=== PATIENT | female | born 2000 | race Caucasian/White ===

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

== ENCOUNTER 2021-03-30 11:47 | Outpatient (CLI) | payer MEDICAID ==
[~2021-03-30] VITALS: Ht 157.5 cm; Wt 85.6 kg
[~2021-03-30 11:47] MED LIST changes: +OMEP40CA6 PO; +SUCR1TAB36 PO
[2021-03-30 12:18] LABS: BILIRUBIN,URINE NEGATIVE (NEGATIVE); CLARITY,URINE CLEAR; COLOR,URINE YELLOW; GLUCOSE, URINE (UA) NEGATIVE (NEGATIVE); KETONES,URINE NEGATIVE (NEGATIVE); LEUKOCYTE ESTERASE ,URINE NEGATIVE (NEGATIVE); NITRITE,URINE NEGATIVE (NEGATIVE); PROTEIN,URINE NEGATIVE (NEGATIVE)
[2021-03-30 12:25] LABS: BACTERIA,URINE NEGATIVE /HPF
[2021-03-30 12:30] VITALS: BP 119/66
[2021-03-31] MEDS ORDERED: PNV11TAB5 PO (18:57)
--- NOTE | 2021-04-01 08:12 | Physician Query-Final Dx ---
FELICITY ALVA 04/01/21 0812: Clinic Account Progress/Dx Physician Query: Please give diagnosis Please include # weeks gestation Date of Service Mar 30, 2021 at 11:47 JOCELIN VIGIL MD 04/03/21 0702: Clinic Account Progress/Dx DIAGNOSIS: Diagnosis 1. Intrauterine at 40 weeks, nonlabored 2. Uterine irritability FELICITY ALVA Apr 01, 2021 08:12 JOCELIN VIGIL MD Apr 03, 2021 07:02
== END 2021-03-30 12:38 | disposition home or self-care (01) ==
LOC: WSo 11:47
PROVIDERS: ATTEND Family Medicine
DX: Z34.90 Encounter for supervision of normal pregnancy, unspecified, unspecified trimester (principal); Z3A.00 Weeks of gestation of pregnancy not specified
CPT/HCPCS: 81000; G0463; 99213

== ENCOUNTER 2021-03-31 18:04 | Inpatient (IN) | payer MEDICAID ==
[~2021-03-31] VITALS: Ht 157.5 cm; Wt 86.2 kg
--- OUTSIDE RECORDS SUMMARY | 2021-03-31 18:08 | XMS REPORT ---
Discharge Summary 2.1 Created on: 02/12/2021 BOBY ROSS : 2000 Sex: Female Author Author BOBY ALDRICH Organization Unknown Address [address] [place], [place] [address] Care Team Providers Care General Matcher Name Role Phone Xwatchlist JOSEE Cuello MD Attending JAVIER OLVERA DO ER Erdoc1 MAJOR SANJAY A TIMBER CRUISER [facility] Functional Status No Data Found Immunization Immunization Date Status Additional Notes Code Code System MMR MMR 04/07/2005 Completed 03 CVX MMR MMR 08/02/2007 Completed 03 CVX Hep B, adolescent or pediatric Hep B, adolescent or pediatric 07/31 Completed 08 CVX Hep B, adolescent or pediatric Hep B, adolescent or pediatric 11/04 Completed 08 CVX Hep B, adolescent or pediatric Hep B, adolescent or pediatric 02/10 Completed 08 CVX IPV IPV 2001 Completed 10 CVX IPV IPV 02/10/2002 Completed 10 CVX IPV IPV 01/14/2005 Completed 10 CVX IPV IPV 08/02/2007 Completed 10 CVX DTaP DTaP 2001 Completed 20 CVX DTaP DTaP 02/10/2002 Completed 20 CVX DTaP DTaP 01/14/2005 Completed 20 CVX DTaP DTaP 02/24/2005 Completed 20 CVX DTaP DTaP 08/20/2009 Completed 20 CVX varicella varicella 04/07/2005 Completed 21 CVX varicella varicella 08/02/2007 Completed 21 CVX Hib (PRP-T) Hib (PRP-T) 2001 Completed 48 CVX Hib (PRP-T) Hib (PRP-T) 02/10/2002 Completed 48 CVX Hib (PRP-T) Hib (PRP-T) 01/14/2005 Completed 48 CVX Hib (PRP-T) Hib (PRP-T) 02/24/2005 Completed 48 CVX HPV, quadrivalent HPV, quadrivalent 03/14/2015 Completed 62 CVX Hep A, ped/adol, 2 dose Hep A, ped/adol, 2 dose 08/20/2009 Completed 83 CVX Hep A, ped/adol, 2 dose Hep A, ped/adol, 2 dose 09/03/2010 Completed 83 CVX pneumococcal conjuga te PCV 7 pneumococcal conjugate PCV 7 02/24/2005 Completed 100 CVX pneumococcal conjuga te PCV 7 pneumococcal conjugate PCV 7 04/07/2005 Completed 100 CVX pneumococcal conjuga te PCV 7 pneumococcal conjugate PCV 7 07/10/2005 Completed 100 CVX pneumococcal conjuga te PCV 7 pneumococcal conjugate PCV 7 08/22/2005 Completed 100 CVX meningococcal MCV4P meningococcal MCV4P 03/14/2015 Completed 114 CVX meningococcal MCV4P meningococcal MCV4P 10/20/2018 Completed 114 CVX Tdap Tdap 01/05/2014 Completed 115 CVX influenza, live, int ranasal, quadrivalent influenza, live, intranasal, quadrivalent 04/02/2013 Completed 149 CVX influenza, injectabl e, quadrivalent influenza, injectable, quadrivalent 04/14/2018 Completed 158 CVX meningococcal B, OMV meningococcal B, OMV 10/20/2018 Completed 163 CVX HPV9 HPV9 04/14/2018 Completed 165 CVX Mental Status No Data Found Results AMNISURE ROM - Collect Date/Time: 2020 06:00 [employer] ID: [id number] [address], [place], [place], [id number] LOINC: 64265-4 Test Value Unit Reference Range Code Code System AMNISURE ROM NEGATIVE NL: NEGATIVE 20636-8 LOINC US RETROPERITONEAL - Completed: 01/05/20 09:43 LOINC: EXAMINATION:US RETROPERITONEALREASON FOR EXAM:Bilateral flank pain left greater than right, 28 weeks COMPARISON:None available.FINDINGS:Moderate right hydronephrosis and mild left hydronephrosis.Questionable nonobstructing left renal calculus versus fortuitous artifact.The right kidney measures 12.4 x 6.9 x 7.5 cm.The left kidney measures 13.3 x 5.9 x 6.4 cm.The bilateral ureteral jets are not visualized. Bladder: No visualized sizable bladder lesion or sizable bladder calculus.IMPRESSION:Right greater than left hydronephrosis.Reviewed and Electronically Signed by: Yoshi Snowden Date/Time: 01/05/2021 1:11 PMJob ID#: [id number] Social History Type Status Start Date End Date Code Code System Smoking History Never smoker (Never Smoked ) 628998893 SNOMED-CT Vital Signs Vital Sign Value Unit [place] Value [place] Unit Date/Time Recent/Initial? Code Cod e System Body Mass Index 26.79 kg/m2 01/04/2021 05:06 Initial 71516-4 LOINC Body Surface Area 1.83 m2 01/04/2021 05:06 Initial 3140-1 LOINC Height 165.1000 cm 65.00 in 01/04/2021 05:06 Initial 8302-2 LOINC Weight 73.03 kg 161.00 lbs 01/04/2021 05:06 Initial 07514-9 LOINC Assessment No Data Found Hospital Discharge Instructions Should you have any questions prior to discharge, please contact a member of your healthcare team. If you have left the hospital and have any questions, please contact your primary care physician. Reason For Referral No Data Found Hospital Course You were admitted to [facility] on 01/04/2021 06:29 with a principal diagnosis of Other specified related conditions, third trimester You were discharged from [facility] on 01/04/2021 15:45 Medications Medication Start Date En d Date Route Frequency Dose Code Code System Medication Instructions Trimethoprim w/ Sulf a DS 800MG-160MG Oral Tablet 01/03/2021 Unknown BY MOUTH EVERY 12 HOURS 1 TABLET 251692 RxNorm 1 TABLET BY MOUTH EVERY 12 HOURS FOR 14 DAYS Percocet 5MG-325MG O ral Tablet 01/03/2021 Unknown BY [facility] NEEDED EVERY 4 HR 1 TABLET 4616080 RxNorm 1 TABLET BY MOUTH NEEDED EVERY 4 HR FOR PAIN LR 1000ML IV [PREDEF INED] 01/04/2021 01/04/2021 IN TRAVENOUS X1 999 ml/hr 375607 RxNorm 999 ml/h r INTRAVENOUS ONE TIME ~~~LR 1000 ML (7953) IV BAG 1000 ML RxNorm LR 1000ML IV [PREDEF INED] 01/04/2021 Unknown INTRA VENOUS CONT IV 125 ml/hr 705997 RxNorm 125 ml/h r INTRAVENOUS ~~~LR 1000 ML (7953) IV BAG 1000 ML RxNorm OXYCODONE 5 MG IMMED IATE RELEASE TAB 01/04/2021 Unknown BY MO UTH PRN Q 4 HRS 1 TAB 094946 1 RxNorm 1 TAB BY MOUTH EVERY 4 HOURS NEE ACETAMINOPHEN [OFIRM EV] 10MG/ML 100ML VL 01/04/2021 Unknown INTRAVENOUS PRN Q 8 HRS 400 ml/hr 8929112 RxNorm 400 ml/hr INTRAVENOUS NEEDED Q 8 HRS ~~~ACETAMINOPHEN [OFIRMEV] 10MG/ML 100ML VL 1000 MG RxNorm ROCEPHIN IV [PREDEF INED]: 1GM IV Q 24HR 01/04/2021 01/11/2021 IV PIGGY Q24H 100 ml/hr [id number] RxNorm 100 ml/h r IV PIGGY ~~~cefTRIAXone [ROCEPHIN] 1 GM ADV VIAL 1 GM RxNorm ~~~NACL 0.9% ADD-VANTAGE: 50 ML BAG 50 ML RxNorm Procedures No Data Found Implants No Data Found Problems No Data Found Allergies Allergy Substance Reaction Severity Start Date Concern Status Code Code System No Known Drug Allergies Active 368500926 SNOMED- CT Plan of Treatment No Data Found Encounters Encounter Diagnosis Start Date Code Code System Other specified preg alice related conditions, third trimester 01/04/2021 SNOMED-CT Goals No Data Found Discharge Medications No Data Found Discharge Diagnosis Discharge Diagnosis Diagnosis Code Start Date Other specified related conditions, third tr imester [id number] 01/04/2021 Health Concerns Section No Data Found
--- OUTSIDE RECORDS SUMMARY | 2021-03-31 18:08 | XMS REPORT ---
Author Author Nadiya Kimbrough [facility] Address [address] [place], [place] [address] Care Team Providers Care Housekeeping/Laundry Name Role Phone Héctor Kimbrough PCP Ramya Liu PreferredProvider Allergies and Adverse Reactions Name Reaction Notes NO KNOWN DRUG ALLERGIES Plan of Treatment Not available. Medications Active Name Start Date Estimated Completion Date SIG Co mments vitamin oral Take one tablet kiki ly Acetaminophen Extra Strength 500 mg tablet 01/15/2021 take 2 tablets (1,000 mg) by oral route every 4-6 hours as needed not to exceed 8 tablets per 24hrs Name Start Date Expiration Date SIG Comments doxepin 100 mg oral capsule 09/02/2019 11/01/2019 take 1 capsule (100 mg) by oral route once daily at bedtime for 30 days Tylenol 325 mg tablet take 1 tab let (325 mg) by oral route every 4 hours as needed Zofran 4 mg tablet 11/23/2020 02/21/2021 take 1 tablet by oral route 2 times a day as needed for 30 days Discontinued Name Start Date [...] oral route once a day at bedtime escitalopram oxalate 10 mg oral tablet 11/23/2020 take 1 tablet (10 mg) by oral route once daily trazodone 100 mg oral tablet 09/05/2019 alta e 2 tablet (100 mg) by oral route once daily at bedtime cyproheptadine 4 mg oral tablet 09/05/2019 Take one tablet by mouth daily at bedtime. Problem List Description Status Onset ADHD Active Vital Signs Date Time BP-Sys(mm[Hg] BP-Chantel(mm[Hg]) HR(bpm) RR(rpm) Temp WT HT HC BMI BSA BMI Percentile O2 Sat(%) 12/27/2020 11:23:00 AM 118 mm[Hg] 68 mm[Hg] 69 {beats}/min 97.9 F 161 lbs 61.5 in 29.9277 kg/m2 1.7801 m2 93.4 % 11/23/2020 1:13:00 PM 116 mm[Hg] 74 mm[Hg] 66 {beats}/min 16 rpm 98.8 F 148 lbs 61.5 in 27.51 kg/m2 1.71 m2 89 % 99 % 09/02/2019 1:24:00 PM 104 mm[Hg] 68 mm[Hg] 95 {beats}/min 20 rpm 98.6 F 188 lbs 61.5 in 34.9467 kg/m2 1.9236 m2 97.7 % 98 % 08/28/2014 9:34:00 AM 100 mm[Hg] 80 mm[Hg] 88 {beats}/min 20 rpm 97 F 117 lbs 61.5 in 21.7487 kg/m2 1.52 m2 80.2 % Social History Name Description Comments Tobacco Current every day smoker Marijuana Current some day 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 History of Procedures Date Ordered Description Order Status 09/05/2019 10:31 AM URINE TEST Reviewed 12/12/2020 12:00 AM COVID-19 Testing Returned 12/27/2020 12:00 AM COLLECTION VENOUS BLOOD VENIPUNCTURE Rev iewed 12/27/2020 12:00 AM SPECIMEN HANDLING OFFICE-LAB Reviewed 12/27/2020 12:00 AM GLUCOSE TOLERANCE TEST (GTT) Reviewed 12/27/2020 12:00 AM COMPLETE CBC W/AUTO DIFF WBC Reviewed 12/27/2020 12:00 AM Type and screen Reviewed 12/27/2020 12:00 AM ASSAY OF FERRITIN Reviewed 12/27/2020 12:00 AM SYPHILIS TEST NON-TREPONEMAL ANTIBODY QU AL Reviewed 12/27/2020 12:00 AM THROMBOPLASTIN TIME PARTIAL Reviewed 12/27/2020 12:00 AM CARDIOLIPIN ANTIBODY EA IG Reviewed 12/27/2020 12:00 AM ASSAY THYROID STIM HORMONE Reviewed 01/15/2021 12:00 AM COVID-19 Testing Returned 02/05/2021 12:00 AM TDAP VACCINE 7 YRS/> IM Reviewed 02/05/2021 12:00 AM IM ADM PRQ ID SUBQ/IM NJXS 1 VACCINE Rev iewed 02/19/2021 12:00 AM CALCULUS ASSAY QUANT Reviewed 03/05/2021 12:00 AM CULTURE SCREEN ONLY Returned Results Summary Date and Description Results 12/28/2020 2:10 PM WBC 11.5 RBC 3.82 HGB 12.0 g /dLHCT 36.20 %MCV 95.0 fLMCH 31.40 pgMCHC 33.10 g/dLRDW SD 45 %RDW CV 12.90 %MPV 9.60 fLPLT 291 x10E3/uLNRBC# 0.00 NRBC% 0.0 %NEUT 68.9 %LYMP 23.4 %MONO 6.4 %EOS 0.4 %BASO 0.3 #NEUT 7.91 #LYMP 2.69 #MONO 0.73 #EOS 0.05 #BASO 0.04 MANUAL DIFF NOT IND FERRITIN 10.0 ng/mLTSH W/REFLEX 0.71 RPR Non Reactive Anticardiolipin Ab,IgG,Qn <9 Anticardiolipin Ab,IgM,Qn 28 12/28/2020 3:05 PM GESTATIONAL GLUCOSE 90 02/19/2021 12:33 PM Source COMMENT Color Johnson Siz e 3x3 Weight 7 Composition COMMENT Hydroxyapatite 100 Photo COMMENT Comment: COMMENT Please note: COMMENT Disclaimer: COMMENT PDF . History Of Immunizations Name Date Admin Mfg Name Mfg Code Trade Name Lot# Route Inj Vis Given Vis Pub CVX Tdap 02/05/2021 [employer] SKB BOOSTRIX 224CG Intramuscular Right Deltoid 02/05/2021 09/28/2019 115 History of Past Illness Name Date of Onset Comments ADHD Depression Bipolar disorder Well Child Examination Aug 28 2014 9:36AM Marijuana abuse Aug 28 2014 9:36AM ADHD (attention deficit hyperactivity disorder) Aug 28 2014 9:36AM Warts Aug 28 2014 9:36AM ADHD Sep 02 2019 1:14PM Depression Sep 02 2019 1:14PM Insomnia Sep 02 2019 1:14PM control counseling Sep 05 2019 10:31AM Physical exam, routine Nov 23 2020 1:13PM Close exposure to severe acute respiratory syndrome co ronavirus 2 (SARS-CoV-2) Dec 12 2020 1:36PM 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, antepartum Dec 27 2020 11:31AM High-risk in second trimester Dec 27 2020 11:31AM 27 weeks gestation of Dec 27 2020 11:31AM First , second trimester Dec 27 2020 12:29PM Encounter for laboratory testing for COVID-19 virus Jan 15 1:25PM Cough Jan 15 2021 1:25PM Congestion of nasal sinus Jan 15 2021 1:25PM Body aches Jan 15 2021 1:25PM Headache Jan 15 2021 1:25PM Loss of taste Jan 15 2021 1:25PM Loss of smell Jan 15 2021 1:25PM Need for Tdap vaccine Feb 05 2021 2:24PM Nephrolithiasis Feb 19 2021 9:43AM screening for streptococcus B Mar 05 2021 9:11AM Payers Insurance Name Company Name Plan Name Plan Number Policy Number Guillermo cy Group Number Start Date [facility] - [facility] - Community [facility] [id number] June History of Encounters Visit Date Visit Type Provider 03/11/2021 Office visit Héctor Walsh 03/05/2021 Office visit Héctor Walsh 02/19/2021 Office visit Héctor Walsh 02/05/2021 Office visit Héctor Walsh 01/22/2021 Office visit Héctor Walsh 01/15/2021 Laboratory Ramya Liu FOOD SERVICE WORKER 12/27/2020 Office visit Héctor Walsh 12/12/2020 Laboratory Zenobia ROCKWELL RN 11/23/2020 Office visit Ramya Liu FOOD SERVICE WORKER 09/02/2019 Office visit Ramya Liu FOOD SERVICE WORKER 08/28/2014 Office visit Grecia ROCKWELL RN
--- OUTSIDE RECORDS SUMMARY | 2021-03-31 18:08 | XMS REPORT ---
Author Author Nadiya Kimbrough [facility] Address [address] [place], [place] [address] Care Team Providers Care Medical Clinic Manager Name Role Phone Héctor Kimbrough PCP Ramya Liu PreferredProvider Allergies and Adverse Reactions Name Reaction Notes NO KNOWN DRUG ALLERGIES Plan of Treatment Planned Activity Comments Planned Date Planned Time Plan/Goal STONE ANALYSIS. 02/19/2021 12:00 AM Medications Active Name Start Date Estimated Completion Date SIG Co mments vitamin oral Take one tablet kiki ly Zofran 4 mg tablet 11/23/2020 02/21/2021 take 1 tablet by oral route 2 times a day as needed for 30 days Acetaminophen Extra Strength 500 mg tablet 01/15/2021 [...] oral route every 4 hours as needed Discontinued Name Start Date Discontinued Date SIG [...] ID SUBQ/IM NJXS 1 VACCINE Rev iewed Results Summary Date and Description Results 12/28/2020 [...] 28 12/28/2020 3:05 PM GESTATIONAL GLUCOSE 90 History Of Immunizations Name Date Admin Mf Name Mf Code Trade Name Lot# Route Inj Vis Given Vis Pub CVX Tdap 02/05/2021 [employer] SKB BOOSTRIX 224CG Intramuscular Right Deltoid 02/05/2021 [...] 2021 2:24PM Nephrolithiasis Feb 19 2021 9:43AM Payers Insurance Name Company Name Plan Name Plan Number Policy Number Guillermo cy Group Number Start Date [facility] - [facility] - [facility] Comm [id number] June History of Encounters Visit Date Visit Type Provider 02/19/2021 Office visit Héctor Walsh 02/05/2021 Office visit Héctor Walsh 01/22/2021 Office visit Héctor Walsh 01/15/2021 Laboratory Ramya Liu FRONT COUNTER ATTENDANT 12/27/2020 Office visit Héctor Walsh 12/12/2020 Laboratory Zenobia ROCKWELL RN 11/23/2020 Office visit Ramya Liu FRONT COUNTER ATTENDANT 09/02/2019 Office visit Ramya Liu FRONT COUNTER ATTENDANT 08/28/2014 Office visit Grecia ROCKWELL RN
--- OUTSIDE RECORDS SUMMARY | 2021-03-31 18:08 | XMS REPORT ---
Author Author Nadiya Kimbrough [facility] Address [address] [place], [place] [address] Care Team Providers Care Channel Layer Name Role Phone Héctor Kimbrough PCP Ramya [...] Vis Given Vis Pub CVX Tdap 02/05/2021 [employer] SKB BOOSTRIX 224CG Intramuscular Right Deltoid 02/05/2021 [...] Number Guillermo cy Group Number Start Date [facility] - [facility] - Community [facility] [id number] June History of Encounters Visit Date Visit Type Provider 03/11/2021 Office visit Héctor Walsh 03/05/2021 Office visit Héctor Walsh 02/19/2021 Office visit Héctor Walsh 02/05/2021 Office visit Héctor Walsh 01/22/2021 Office visit Héctor Walsh 01/15/2021 Laboratory Ramya Liu SENIOR UI UX DESIGNER 12/27/2020 Office visit Héctor Walsh 12/12/2020 Laboratory Zenobia ROCKWELL RN 11/23/2020 Office visit Ramya Liu SENIOR UI UX DESIGNER 09/02/2019 Office visit Ramya Liu SENIOR UI UX DESIGNER 08/28/2014 Office visit Grecia ROCKWELL RN
--- OUTSIDE RECORDS SUMMARY | 2021-03-31 18:08 | XMS REPORT ---
Author Author Nadiya Kimbrough [facility] Address [address] [place], [place] [phone] Care Team Providers Care Competitive Shopper Name Role Phone Héctor Kimbrough PCP Ramya [...] 90 History Of Immunizations Name Date Admin Mfg Name Mfg Code Trade Name Lot# Route Inj Vis Given Vis Pub CVX Tdap 02/05/2021 [employer] SKB BOOSTRIX 224CG Intramuscular Right Deltoid 02/05/2021 [...] for Tdap vaccine Feb 05 2021 2:24PM Payers Insurance Name Company Name Plan Name Plan Number Policy Number Guillermo cy Group Number Start Date [facility] - [facility] - [facility] [id number] June History of Encounters Visit Date Visit Type Provider 02/05/2021 Office visit Héctor Walsh 01/22/2021 Office visit Héctor Walsh 01/15/2021 Laboratory Ramya Liu MURAL ARTIST 12/27/2020 Office visit Héctor Walsh 12/12/2020 Laboratory Zenobia ROCKWELL RN 11/23/2020 Office visit aRmya Liu MURAL ARTIST 09/02/2019 Office visit Ramya Liu MURAL ARTIST 08/28/2014 Office visit Grecia ROCKWELL RN
--- OUTSIDE RECORDS SUMMARY | 2021-03-31 18:08 | XMS REPORT ---
Author Author Nadiya Kimbrough [facility] Address [address] [place], [place] [phone] Care Team Providers Care Tetryl Dissolver Operator Name Role Phone Héctor Kimbrough PCP Major, Ramya A PreferredProvider Allergies and Adverse Reactions Name Reaction Notes NO KNOWN DRUG ALLERGIES Plan of Treatment Planned Activity Comments Planned Date Planned Time Plan/Goal Group B strep culture 03/05/2021 12:00 AM Medications Active Name Start Date [...] iewed 02/19/2021 12:00 AM CALCULUS ASSAY QUANT Returned Results Summary Date and Description Results [...] Vis Given Vis Pub CVX Tdap 02/05/2021 [employer] SKB BOOSTRIX 224CG Intramuscular Right Deltoid 02/05/2021 [...] laboratory testing for COVID-19 virus Jan 15 2 021 1:25PM Cough Jan 15 2021 1:25PM Congestion [...] Guillermo cy Group Number Start Date [facility] - Community [facility] [id number] June History of Encounters Visit Date Visit Type Provider 03/05/2021 Office visit Héctor Walsh 02/19/2021 Office visit Héctor Walsh 02/05/2021 Office visit Héctor Walsh 01/22/2021 Office visit Héctor Walsh 01/15/2021 Laboratory Ramya Liu WINDOWS SYSTEMS ENGINEER 12/27/2020 Office visit Héctor Walsh 12/12/2020 Laboratory Zenobia ROCKWELL RN 11/23/2020 Office visit Ramya Liu WINDOWS SYSTEMS ENGINEER 09/02/2019 Office visit Ramya Liu WINDOWS SYSTEMS ENGINEER 08/28/2014 Office visit Grecia ROCKWELL RN
--- OUTSIDE RECORDS SUMMARY | 2021-03-31 18:08 | XMS REPORT ---
Author Author Nadiya Kimbrough [facility] Address [address] [place], [place] [address] Care Team Providers Care Truss Driver Helper Name Role Phone Héctor Kimbrough PCP Ramya [...] Vis Given Vis Pub CVX Tdap 02/05/2021 [employer] SKB BOOSTRIX 224CG Intramuscular Right Deltoid 02/05/2021 [...] Number Guillermo cy Group Number Start Date [facility] - [facility] - Community [facility] Comm [id number] June History of Encounters Visit Date Visit Type Provider 03/18/2021 Office visit Héctor Walsh 03/11/2021 Office visit Héctor Walsh 03/05/2021 Office visit Héctor Walsh 02/19/2021 Office visit Héctor Walsh 02/05/2021 Office visit Héctor Walsh 01/22/2021 Office visit Héctor Walsh 01/15/2021 Laboratory Ramya Liu STENOGRAPHER PRINT SHOP 12/27/2020 Office visit Héctor Walsh 12/12/2020 Laboratory Zenobia ROCKWELL RN 11/23/2020 Office visit Ramya Liu STENOGRAPHER PRINT SHOP 09/02/2019 Office visit Ramya Liu STENOGRAPHER PRINT SHOP 08/28/2014 Office visit Grecia ROCKWELL RN
--- OUTSIDE RECORDS SUMMARY | 2021-03-31 18:08 | XMS REPORT ---
Author Author Nadiya Kimbrough [facility] Address [address] [place], [place] [address] Care Team Providers Care Pathology Supervisor Name Role Phone Héctor Kimbrough PCP Rmaya Liu PreferredProvider Allergies and Adverse Reactions Name [...] Vis Given Vis Pub CVX Tdap 02/05/2021 [employer] SKB BOOSTRIX 224CG Intramuscular Right Deltoid 02/05/2021 [...] Number Guillermo cy Group Number Start Date [facility] - [facility] [id number] June History of Encounters Visit Date Visit Type Provider 02/19/2021 Office visit Héctor Walsh 02/05/2021 Office visit Héctor Walsh 01/22/2021 Office visit Héctor Walsh 01/15/2021 Laboratory Ramya Liu TOOL FILER 12/27/2020 Office visit Héctor Walsh 12/12/2020 Laboratory Zenobia ROCKWELL RN 11/23/2020 Office visit Ramya Liu TOOL FILER 09/02/2019 Office visit Ramya Liu TOOL FILER 08/28/2014 Office visit Grecia ROCKWELL RN
--- OUTSIDE RECORDS SUMMARY | 2021-03-31 18:08 | XMS REPORT ---
Author Author Nadiya Kimbrough [facility] Address [address] [place], [place] [address] Care Team Providers Care Engraving Plate Maker Name Role Phone Héctro Kimbrough PCP Ramya Liu PreferredProvider Allergies and [...] Vis Given Vis Pub CVX Tdap 02/05/2021 [employer] SKB BOOSTRIX 224CG Intramuscular Right Deltoid 02/05/2021 [...] Number Guillermo cy Group Number Start Date [facility] - [facility] - Community [facility] Comm [id number] June History of Encounters Visit Date Visit Type Provider 03/18/2021 Office visit Héctor Walsh 03/11/2021 Office visit Héctor Walsh 03/05/2021 Office visit Héctor Walsh 02/19/2021 Office visit Héctor Walsh 02/05/2021 Office visit Héctor Walsh 01/22/2021 Office visit Héctor Walsh 01/15/2021 Laboratory Ramya Liu PANTS PRESSER 12/27/2020 Office visit Héctor Walsh 12/12/2020 Laboratory Zenobia ROCKWELL RN 11/23/2020 Office visit Ramya Liu PANTS PRESSER 09/02/2019 Office visit Ramya Liu PANTS PRESSER 08/28/2014 Office visit Grecia ROCKWELL RN
--- OUTSIDE RECORDS SUMMARY | 2021-03-31 18:08 | XMS REPORT ---
Author Author Nadiya Kimbrough [facility] Address [address] [place], [place] [phone] Care Team Providers Care Truck Driving Instructor Name Role Phone Héctor Kimbrough PCP Ramya [...] Reviewed 01/15/2021 12:00 AM COVID-19 Testing Returned Results Summary Date and Description Results [...] PM GESTATIONAL GLUCOSE 90 History Of Immunizations Not available. History of [...] Loss of smell Jan 15 2021 1:25PM Payers Insurance Name Company Name Plan Name Plan Number Policy Number Guillermo cy Group Number Start Date [facility] - [facility] - Community [facility] [id number] June History of Encounters Visit Date Visit Type Provider 02/05/2021 Office visit Héctor Walsh 01/22/2021 Office visit Héctor Walsh 01/15/2021 Laboratory Ramya Liu MOTORCYCLE ASSEMBLER 12/27/2020 Office visit Héctor Walsh 12/12/2020 Laboratory Zenobia ROCKWELL RN 11/23/2020 Office visit Ramya Liu MOTORCYCLE ASSEMBLER 09/02/2019 Office visit Ramya Liu MOTORCYCLE ASSEMBLER 08/28/2014 Office visit Grecia ROCKWELL RN
--- OUTSIDE RECORDS SUMMARY | 2021-03-31 18:08 | XMS REPORT ---
Author Author Nadiya Kimbrough [facility] Address [address] [place], [place] [address] Care Team Providers Care Electrical Technician Instructor Name Role Phone Héctor Kimbrough PCP Major, [...] Vis Given Vis Pub CVX Tdap 02/05/2021 [employer] SKB BOOSTRIX 224CG Intramuscular Right Deltoid 02/05/2021 [...] cy Group Number Start Date [facility] - [facility] - Community [facility] [id number] June History of Encounters Visit Date Visit Type Provider 03/05/2021 Office visit Héctor Walsh 02/19/2021 Office visit Héctor Walsh 02/05/2021 Office visit Héctor Walsh 01/22/2021 Office visit Héctor Walsh 01/15/2021 Laboratory Ramya Liu CRECHE ATTENDANT 12/27/2020 Office visit Héctor Walsh 12/12/2020 Laboratory Zenobia ROCKWELL RN 11/23/2020 Office visit Ramya Liu CRECHE ATTENDANT 09/02/2019 Office visit Ramya Liu CRECHE ATTENDANT 08/28/2014 Office visit Grecia ROCKWELL RN
--- OUTSIDE RECORDS SUMMARY | 2021-03-31 18:08 | XMS REPORT ---
Author Author Nadiya Kimbrough [facility] Address [address] [place], [place] [id number] Care Team Providers Care Mental Health Counselor Name Role Phone Héctor Kimbrough PCP Ramya [...] Vis Given Vis Pub CVX Tdap 02/05/2021 Corelytics SKB BOOSTRIX 224CG Intramuscular Right Deltoid 02/05/2021 [...] Number Guillermo cy Group Number Start Date [facility] - [facility] - Community [facility] Comm [id number] June History of Encounters Visit Date Visit Type Provider 03/18/2021 Office visit Héctor Walsh 03/11/2021 Office visit Héctor Walsh 03/05/2021 Office visit Héctor Walsh 02/19/2021 Office visit Héctor Walsh 02/05/2021 Office visit Héctor Walsh 01/22/2021 Office visit Héctor Walsh 01/15/2021 Laboratory Ramya Liu PARTS PULLER 12/27/2020 Office visit Héctor Walsh 12/12/2020 Laboratory Zenobia ROCKWELL RN 11/23/2020 Office visit Ramya Liu PARTS PULLER 09/02/2019 Office visit Ramya Liu PARTS PULLER 08/28/2014 Office visit Grecia ROCKWELL RN
--- OUTSIDE RECORDS SUMMARY | 2021-03-31 18:08 | XMS REPORT ---
Author Author Nadiya Kimbrough [facility] Address [address] [place], [place] [id number] Care Team Providers Care User Acceptance Tester Name Role Phone Héctor Kimbrough PCP Ramya [...] Vis Given Vis Pub CVX Tdap 02/05/2021 [employer] SKB BOOSTRIX 224CG Intramuscular Right Deltoid [...] Number Guillermo cy Group Number Start Date [facility] - [facility] - [facility] [id number] June History of Encounters Visit Date Visit Type Provider 02/19/2021 Office visit Héctor Walsh 02/05/2021 Office visit Héctor Walsh 01/22/2021 Office visit Héctor Walsh 01/15/2021 Laboratory Ramya Liu TESTING ENGINEER 12/27/2020 Office visit Héctor Walsh 12/12/2020 Laboratory Zenobia ROCKWELL RN 11/23/2020 Office visit Ramya Liu TESTING ENGINEER 09/02/2019 Office visit Ramya Liu TESTING ENGINEER 08/28/2014 Office visit Grecia ROCKWELL RN
--- OUTSIDE RECORDS SUMMARY | 2021-03-31 18:08 | XMS REPORT ---
Author Author Nadiya Kimbrough [facility] Address [address] [place], [place] [phone] Care Team Providers Care Shore Man Name Role Phone Héctor Kimbrough PCP Ramya [...] Vis Given Vis Pub CVX Tdap 02/05/2021 Vusay SKB BOOSTRIX 224CG Intramuscular Right Deltoid 02/05/2021 [...] Number Guillermo cy Group Number Start Date [facility] - [facility] - Community [facility] Comm [id number] June History of Encounters Visit Date Visit Type Provider 03/18/2021 Office visit Héctor Walsh 03/11/2021 Office visit Héctor Walsh 03/05/2021 Office visit Héctor Walsh 02/19/2021 Office visit Héctor Walsh 02/05/2021 Office visit Héctor Walsh 01/22/2021 Office visit Héctor Walsh 01/15/2021 Laboratory Ramya Liu DOCUMENT PREPARER MICROFILMING 12/27/2020 Office visit Héctor Walsh 12/12/2020 Laboratory Zenobia ROCKWELL RN 11/23/2020 Office visit Ramya Liu DOCUMENT PREPARER MICROFILMING 09/02/2019 Office visit Ramya Liu DOCUMENT PREPARER MICROFILMING 08/28/2014 Office visit Grecia ROCKWELL RN
--- OUTSIDE RECORDS SUMMARY | 2021-03-31 18:08 | XMS REPORT ---
Author Author Nadiya Kimbrough [facility] Address [address] [place], [place] [phone] Care Team Providers Care Hospital Director Name Role Phone Héctor Kimbrough PCP Major, [...] ADHD Active Vital Signs Date Time BP-Sys(mm[Hg] BP-Chatnel(mm[Hg]) HR(bpm) RR(rpm) Temp WT HT HC BMI [...] Vis Given Vis Pub CVX Tdap 02/05/2021 MyCadbox SKB BOOSTRIX 224CG Intramuscular Right Deltoid 02/05/2021 [...] Number Guillermo cy Group Number Start Date [facility] - [facility] - Community [facility] [id number] June History of Encounters Visit Date Visit Type Provider 03/05/2021 Office visit Héctor Walsh 02/19/2021 Office visit Héctor Walsh 02/05/2021 Office visit Héctor Walsh 01/22/2021 Office visit Héctor Walsh 01/15/2021 Laboratory Ramya Liu STEEL SAMPLER 12/27/2020 Office visit Héctor Walsh 12/12/2020 Laboratory Zenobia ROCKWELL RN 11/23/2020 Office visit Ramya Liu STEEL SAMPLER 09/02/2019 Office visit Ramya Liu STEEL SAMPLER 08/28/2014 Office visit Grecia ROCKWELL RN
--- OUTSIDE RECORDS SUMMARY | 2021-03-31 18:08 | XMS REPORT ---
Author Author Nadiya Kimbrough [facility] Address [address] [place], [place] [phone] Care Team Providers Care Tree Fruit And Nut Farming Supervisor Name Role Phone Héctor Kimbrough PCP Ramya [...] Number Guillermo cy Group Number Start Date [facility] - Community Plan [facility] [id number] June History of Encounters Visit Date Visit Type Provider 02/05/2021 Office visit Héctor Walsh 01/22/2021 Office visit Héctor Walsh 01/15/2021 Laboratory Ramya Liu WEB DEVELOPMENT DIRECTOR 12/27/2020 Office visit Héctor Walsh 12/12/2020 Laboratory Zenobia ROCKWELL RN 11/23/2020 Office visit Ramya Liu WEB DEVELOPMENT DIRECTOR 09/02/2019 Office visit Ramya Liu WEB DEVELOPMENT DIRECTOR 08/28/2014 Office visit Grecia ROCKWELL RN
--- OUTSIDE RECORDS SUMMARY | 2021-03-31 18:08 | XMS REPORT | Clinical Summary ---
Author Author [facility] Address Unknown Phone Unavailable Care Team Providers Care Tile Erector Name Role Phone Unassigned, None PCP Unavailable Martinez Lucero MD [phone] Allergies Comments Active Allergy Reactions Severity Noted Date Beta Vulgaris Anaphylaxis High 10/13/2018 Latex Anaphylaxis High 10/13/2018 Medications End Date Status Medication Sig Dispensed Refills Start Date Active Melatonin 5 MG CAPS Take 5 mg by 0 mouth at bedtime as needed. Active asenapine (SAPHRIS) 2.5 Place 1 30 tablet 0 / MG SL tabletIndications: tablet (2.5 8 Mood disorder/insomnia mg total) under the tongue at bedtime. Indications: Mood disorder/inso mnia Active methylphenidate Take 1 tablet 30 tablet 0 01/17/20 1 (CONCERTA) 36 MG CR (36 mg total) 8 tabletIndications: ADHD by mouth (attention deficit daily. Do not hyperactivity disorder), exceed a combined type daily dose of 36 mg Active guanFACINE (INTUNIV) 2 MG Take 2 mg by 0 11/28 24 hr tablet mouth daily. 9 Active Promethazine-Codeine TAKE 5 ML 0 6.25-10 MG/5ML SOLN (CC) BY MOUTH 9 EVERY 4 HOURS NEEDED FOR COUGH Active traZODone (DESYREL) 50 MG Take 100 mg 0 11/28 tablet by mouth. 9 Active cloNIDine (CATAPRES) 0.1 0 MG tablet 9 Active cyproheptadine 0 (PERIACTIN) 4 MG tablet 9 Active BANOPHEN 25 MG tablet 0 9 Active VYVANSE 30 MG capsule Take 30 mg by 0 05/13/20 1 mouth every 9 morning before breakfast. 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 Conduct disorder 01/13/2018 Resolved Problems Problem Noted Date Resolved Date Suicidal ideation 01/13/2018 01/15/2018 Immunizations Name Administration Dates Next Due DTaP 08/20/2009, 02/24/2005, , 02/10/2002, 2001 HPV, quadrivalent 03/14/2015 (Gardasil) HPV-9, Valent (Gardasil) 04/14/2018, 11/06/2016 Hep B,adolescent or 02/10/2002, 2001, 07/2001 pediatric Hepatitis A, Ped/adol, 2 09/03/2010, 08/20/2009 dose HiB (PRP-T) 02/24/2005, 01/14/2005, , 2001 IPV 08/02/2007, 01/14/2005, , 2001 Influenza IIV4 MDV 04/14/2018 (Multi-dose vial) Influenza LAIV4 Nasal 04/02/2013 MMR 08/02/2007, 04/07/2005 Meningococcal 10/20/2018 B-Recombinant (Bexsero) Meningococcal 10/20/2018, 03/14/2015 Polysaccharide valent-4 Diphtheria Toxoid Conjucate (Menactra) Pneumococcal Conjugate 08/22/2005, 07/10/2005, 03/2005, 02/24/2005 (7-valent) -WebIZ Registry Tdap 01/05/2014 Varicella (Varivax) 08/02/2007, 04/07/2005 Social History Date Tobacco Use Types Packs/Day Years Used Former Smoker 0 Smokeless Tobacco: Never Used Comments Alcohol Use Standard Drinks/Week Never 0 (1 standard drink = 0.6 o z pure alcohol) Alcohol Habits Answer Date Recorded How often do you have a drink containing alcohol? Never 03/23/2019 How many drinks containing alcohol do you have on No t asked a typical day when you are drinking? How often do you have six or more drinks on one Not asked occasion? Control Partners Comments Sexually Active None Male Yes Sex Assigned at Date Recorded Not on file Last Filed Vital Signs Reading Time Taken Comments Vital Sign 114/83 05/25/2019 4:18 PM ECONOMIC HISTORY TEACHER Blood Pressure 113 05/25/2019 4:18 PM ECONOMIC HISTORY TEACHER Pulse 37.1 C (98.7 F) 05/25/2019 4:18 PM ECONOMIC HISTORY TEACHER Temperature 18 05/25/2019 4:18 PM ECONOMIC HISTORY TEACHER Respiratory Rate 100% 05/25/2019 4:18 PM ECONOMIC HISTORY TEACHER Oxygen Saturation - - Inhaled Oxygen Concentration 86 kg (189 lb 8 oz) 05/25/2019 4:18 PM ECONOMIC HISTORY TEACHER Weight 158.8 cm (5' 2.5") 05/25/2019 4:18 PM ECONOMIC HISTORY TEACHER Height 34.11 05/25/2019 4:18 PM ECONOMIC HISTORY TEACHER Body Mass Index 97.55 % 05/25/2019 4:18 PM ECONOMIC HISTORY TEACHER Body Mass Index Percentile Growth Chart: [facility] (Girls, 2-20 Years) Plan of Treatment Health Maintenance Due Date Last Done Comments COVID-19 Vaccine (1) 2013 MenB Vaccine (Bexsero) (2 11/17/2018 10/20/2018 of 2) Hepatitis C Screening 2019 Influenza Vaccine (#1) 2021 04/14/2018, 04/02/2013 DTaP,Tdap,and Td Vaccines 01/06/2024 01/05/2014, (6 - Td or Tdap) 08/20/2009, 02/24/2005, Additional history exists Pneumo-Vaccine: 65+Yrs (1 2066 of 1 - PPSV23) HIB Vaccines Completed 02/24/2005, 01/14/2005, 02/10/2002, Additional history exists Pneumo-Vaccine: Peds (0-5 Completed 08/22/2005, Yrs) & At-Risk Patients 07/10/2005, (6-64 Yrs) 04/07/2005, Additional history exists IPV Vaccines Completed 08/02/2007, 01/14/2005, 02/10/2002, Additional history exists MMR Vaccines-Adult Completed 08/02/2007, 04/07/2005 Varicella Vaccines Completed 08/02/2007, 04/07/2005 HPV Vaccines Completed 04/14/2018, 11/06/2016, 03/14/2015 Meningococcal Vaccine Completed 10/20/2018, 03/14/2015 Rotavirus Vaccines Aged Out No longer eligible based on patient's age to complete this topic Results Not on filefrom Last 3 Months Insurance Type Payer Benefit Subscriber ID Effective Phone Address Plan / Dates Group [employer] [facility] [employer] 19 [id number] 2018- [address] Present [address] [place] [address] [employer] [facility] 19 [id number] 2019- [address] [facility] [address] [place] [address] Advance Directives For more information, please contact: [phone] Patient Veneer Stapler Explanation Type Date Recorded Advance Directives and Living Will Power of Cutting Torch Operator Date Inactivated Comments Code Status Date Activated 01/15/2018 6:05 PM Full Code 01/13/2018 4:42 AM Care Teams Start Date End Date Tile Erector Relationship Specialty 03/23/19 Unassigned, None PCP - General [place] 05/12/19 Martinez Lucero MD Ultrasound Coordinator Obstetrics/ [address] [place] [address]
--- OUTSIDE RECORDS SUMMARY | 2021-03-31 18:09 | XMS REPORT ---
Author Author Nadiya Kimbrough [facility] Address [address] [place], [place] [phone] Care Team Providers Care Exchange Consultant Name Role Phone Héctor Kimbrough PCP Ramya [...] Number Guillermo cy Group Number Start Date [facility] - [facility] - Community Plan [facility] [id number] June History of Encounters Visit Date Visit Type Provider 02/05/2021 Office visit Héctor Walsh 01/22/2021 Office visit Héctor Walsh 01/15/2021 Laboratory Ramya Liu INFORMATION TECHNOLOGY PROFESSOR 12/27/2020 Office visit Héctor Walsh 12/12/2020 Laboratory Zenobia ROCKWELL RN 11/23/2020 Office visit Ramya Liu INFORMATION TECHNOLOGY PROFESSOR 09/02/2019 Office visit Ramya Lui INFORMATION TECHNOLOGY PROFESSOR 08/28/2014 Office visit Grecia ROCKWELL RN
[2021-03-31] MEDS ORDERED: MINERAL OIL CONCENTRATE 99.9% 15 ML UDC TOP PRN (18:15)
[2021-03-31 18:30] VITALS: BP 117/73
[2021-03-31] MEDS: D5 LR IV SOLUTION 1,000 ML IV SCH (18:47)
[2021-03-31 18:54] LABS: BASOPHILS % (AUTO) 0 % (0-10); EOSINOPHILS # (AUTO) 0.1 10^3/uL (0.0-0.3); EOSINOPHILS % (AUTO) 1 % (0-10); HEMATOCRIT 35 % (35-52); HEMOGLOBIN 11.7 g/dL (11.5-16.0); LYMPHOCYTES # (AUTO) 2.6 10^3/uL (1.0-4.0); LYMPHOCYTES % (AUTO) 20 % (12-44); MEAN CORPUSCULAR HEMOGLOBIN 31 pg (25-34); MEAN CORPUSCULAR HGB CONC 34 g/dL (32-36); MEAN CORPUSCULAR VOLUME 93 fL (80-99); MEAN PLATELET VOLUME 10.7 fL (9.0-12.2); MONOCYTES # (AUTO) 0.8 10^3/uL (0.0-1.0); MONOCYTES % (AUTO) 6 % (0-12); NEUTROPHILS # (AUTO) 9.2 10^3/uL (1.8-7.8); NEUTROPHILS % (AUTO) 72 % (42-75); PLATELET COUNT 271 10^3/uL (130-400); WHITE BLOOD COUNT 12.7 10^3/uL (4.3-11.0)
[2021-03-31] MEDS ORDERED: PNV11TAB5 PO (18:57)
[2021-03-31 19:03] LABS: BILIRUBIN,URINE NEGATIVE (NEGATIVE); CLARITY,URINE SL CLOUDY; COLOR,URINE YELLOW; GLUCOSE, URINE (UA) NEGATIVE (NEGATIVE); KETONES,URINE NEGATIVE (NEGATIVE); LEUKOCYTE ESTERASE ,URINE NEGATIVE (NEGATIVE); NITRITE,URINE NEGATIVE (NEGATIVE); PROTEIN,URINE NEGATIVE (NEGATIVE)
[2021-03-31 19:11] LABS: AMORPHOUS SEDIMENT,UR LARGE AMOR PHOSPHATE /LPF; BACTERIA,URINE TRACE /HPF; WBC,URINE RARE /HPF
[2021-03-31] MEDS ORDERED: LACTATED RINGERS 1,000 ML IV SCH (20:00)
[2021-03-31 21:00] VITALS: BP 120/66
[2021-03-31] MEDS ORDERED: CATHETER FLUSH 10 ML SYR IV SCH (22:00)
[2021-03-31 23:00] VITALS: BP 113/67
[2021-04-01] VITALS (37 sets, daily range): BP systolic 88–151; BP diastolic 46–106
[2021-04-01] MEDS: D5 LR IV SOLUTION 1,000 ML IV SCH ×2 (03:45→08:35)
[2021-04-01] MEDS ORDERED: BUTORPHANOL INJ 2 MG/ML (STADOL) VIAL ONE (04:43)
[2021-04-01] MEDS ORDERED: BUTORPHANOL INJ 2 MG/ML (STADOL) VIAL IV PRN (04:45)
[2021-04-01] MEDS ORDERED: LACTATED RINGERS 1,000 ML IV SCH (06:45)
[2021-04-01] MEDS ORDERED: fentaNYL 2 mcg/ml BUPIVA 0.125 100 ML ONE (06:48)
[2021-04-01] MEDS ORDERED: fentaNYL INJ 100 MCG/2 ML AMP ONE (07:09)
[2021-04-01] MEDS ORDERED: BUPIVACAINE 0.25% 30 ML (SENSORCAINE) VIAL ONE (07:09)
[2021-04-01] MEDS ORDERED: CATHETER FLUSH 10 ML SYR IV PRN (07:15)
[2021-04-01] MEDS ORDERED: fentaNYL 2 mcg/ml BUPIVA 0.125 100 ML IV SCH (07:15)
[2021-04-01] MEDS ORDERED: LACTATED RINGERS 1,000 ML IV ONE (07:15)
[2021-04-01] MEDS ORDERED: NALOXONE 0.4 MG/ML 1 ML (NARCAN) VIAL IV PRN ×2 (07:15→10:45)
--- NOTE | 2021-04-01 07:52 | History & Physical-OB ---
OB - Chief Complaint & HPI Date/Time Date of Admission: Date of Admission: Mar 31, 2021 at 18:04 Date seen by a Provider: Apr 01, 2021 Time Seen by a Provider: 06:25 Chief Complaint/History OB-Reason for Admission/Chief: Induction of Labor Hx : 4 Hx Para: 0 Expected Date of Delivery: Mar 27, 2021 Gestational Age in Weeks: 40 Gestational Age in Days: 4 Indication for induction: post dates Admission Nurse Assessment Rev: Yes History of Labs GBS negative Allergies and Home Medications Allergies Coded Allergies: No Known Drug Allergies (Unverified , 02/03/19) Patient Home Medication List Home Medication List Reviewed: Yes Syd860/FA/Omega3/Dha/Fish Oil ( Gummies) 1 Each Tab.chew, 2 EACH PO DAILY, (Reported) Entered as Reported by: LUZ NOGUERA on 03/31/211856 Last Action: New Order Discontinued Medications Nitrofurantoin Monohyd/M-Cryst (Macrobid 100 mg Capsule) 100 Mg Capsule, 1 TAB PO BID Discontinued Reason: No Longer Taking Prescribed by: NAOMI PAINTER on 02/03/192213 Omeprazole (Omeprazole) 40 Mg Capsule.dr, 40 MG PO DAILY Discontinued Reason: No Longer Taking Prescribed by: MARSHA DIMAS on 12/18/19 170 Sucralfate (Carafate) 1 Gm Tablet, 1 GM PO QIDACHS Discontinued Reason: No Longer Taking Prescribed by: MARSHA DIMAS on 12/18/19 170 OB - History Hx of Present Care: Yes Ultrasounds: Normal mid trimester US Obstetrical Complications: None Medical Complications: Cardiovascular Patient Past Medical History no chronic medical problems Social History/Family History 2nd Hand Smoke Exposure: Yes Immunizations Tetanus Booster (TDap): Unknown OB - Admission Exam Physical Exam Vitals: Vital Signs 03/31/21 04/01/21 04/01/21 18:30 03:00 07:00 Temp 36.6 Pulse 76 Resp 18 B/P (MAP) 133/81 (98) Pulse Ox 97 O2 Delivery Room Air HEENT: Moist Membranes Heart: Rhythm Normal Lungs: Clear Abdomen: Gravid Cervical Dilatation: 1cm (on admission) Effacement: 75% Station: -3 Membranes: Intact Heart Rate: 140's Accelerations: Accelerations Present Decelerations: No Decelerations Short Term Variability: Present Prison Variability: Average (6-25) Contractions on Admission: >10 Minutes Apart Intensity: Mild Davey Scoring Tool (Modified) Dilation (cm): 1-2cm (1) Effacement (%): 51-79% (2) Descent/Station: -3 (0) Cervix Consistency: Medium(1) Cervix Position: Middle/Mid-Position (1) Davey Score: 4 Labs Laboratory Tests Test 03/31/21 18:15 03/31/21 18:30 Range/Units Urine Color YELLOW Urine Clarity SL CLOUDY Urine pH 7.0 5-9 Urine Specific [place] 1.020 1.016-1.022 Urine Protein NEGATIVE NEGATIVE Urine Glucose (UA) NEGATIVE NEGATIVE Urine Ketones NEGATIVE NEGATIVE Urine Nitrite NEGATIVE NEGATIVE Urine Bilirubin NEGATIVE NEGATIVE Urine Urobilinogen 0.2 < = 1.0 MG/DL Urine Leukocyte Esterase NEGATIVE NEGATIVE Urine RBC (Auto) NEGATIVE NEGATIVE Urine RBC NONE /HPF Urine WBC RARE /HPF Urine Crystals PRESENT H /LPF Urine Amorphous Sediment LARGE REJI PHOSPHATE H /LPF Urine Bacteria TRACE /HPF Urine Casts NONE /LPF Urine Mucus NEGATIVE /LPF Urine Culture Indicated NO White Blood Count 12.7 H 4.3-11.0 10^3/uL Red Blood Count 3.77 L 3.80-5.11 10^6/uL Hemoglobin 11.7 11.5-16.0 g/dL Hematocrit 35 35-52 % Mean Corpuscular Volume 93 80-99 fL Mean Corpuscular Hemoglobin 31 25-34 pg Mean Corpuscular Hemoglobin Concent 34 32-36 g/dL Red Cell Distribution Width 13.7 10.0-14.5 % Platelet Count 271 130-400 10^3/uL Mean Platelet Volume 10.7 9.0-12.2 fL Immature Granulocyte % (Auto) 0 % Neutrophils (%) (Auto) 72 42-75 % Lymphocytes (%) (Auto) 20 12-44 % Monocytes (%) (Auto) 6 0-12 % Eosinophils (%) (Auto) 1 0-10 % Basophils (%) (Auto) 0 0-10 % Neutrophils # (Auto) 9.2 H 1.8-7.8 10^3/uL Lymphocytes # (Auto) 2.6 1.0-4.0 10^3/uL Monocytes # (Auto) 0.8 0.0-1.0 10^3/uL Eosinophils # (Auto) 0.1 0.0-0.3 10^3/uL Basophils # (Auto) 0.0 0.0-0.1 10^3/uL Immature Granulocyte # (Auto) 0.1 0.0-0.1 10^3/uL OB - Assessment/Plan/Diagnosis Assessment Assessment: induction of labor (at 40w4d gestation) Admission Dx 1. IUP at 40w4d gestation Admission Status: Inpatient Order (span 2 midnights) Reason for Inpatient Admission: L&D Plan Plan: Induction Induction Method: per Misoprostol Protocol Other Plan -she desires epidural JOCELIN VIGIL MD Apr 01, 2021 07:52
[2021-04-01] MEDS ORDERED: ONDANSETRON 4 MG/2 ML (SDV) Z0FRAN ONE (08:37)
[2021-04-01] MEDS ORDERED: ONDANSETRON 4 MG/2 ML (SDV) Z0FRAN IVP PRN (08:45)
[2021-04-01] MEDS ORDERED: LIDOCAINE/EPI 2% 1:200,00 (XYLOCAINE) 20 ML VIAL ONE (08:55)
[2021-04-01] MEDS ORDERED: MEPIVACAINE (CARBOCAINE) 2% 50 ML VIAL ONE (08:58)
[2021-04-01] MEDS: OXYTOCIN PRE-MIX DRIP 500 ML IV SCH ×2 (09:18→10:02)
--- NOTE | 2021-04-01 10:43 | OB Labor & Delivery Record ---
L&D History Date of Service Date of Service: Apr 01, 2021 History Expected Date of Delivery: Mar 27, 2021 Gestational Age in Weeks: 40 Hx : 4 Hx Para: 1 Complications Events: Routine care Operative Indications (Cesarea: N/A-Vaginal Delivery Intrapartal Events: None L&D Stage1 Stage One Onset of Labor - Date: Apr 01, 2021 Onset of Labor - Time: 06:25 Monitors and Tracing Monitor Mode: Internal Heart Rate: 120 Monitor Accelerations: Uniform Station: 0 Senior Living Variability: Average (6-10) Short Term Variability: Present Presentation: Vertex Vital Signs VS - Last 72 Hours, by Label 03/31/21 03/31/21 03/31/21 04/01/21 18:30 21:00 23:00 00:00 Temp 36.6 36.8 Pulse 88 76 79 74 Resp 18 B/P (MAP) 120/66 (84) 113/67 (82) 88/46 (60) Pulse Ox 97 O2 Delivery Room Air Room Air Room Air Room Air 04/01/21 04/01/21 04/01/21 04/01/21 01:00 02:00 03:00 04:00 Temp 36.6 Pulse 78 81 82 85 B/P (MAP) 111/62 (78) 113/63 (80) 110/71 (84) 126/71 (89) O2 Delivery Room Air Room Air Room Air Room Air 04/01/21 04/01/21 04/01/21 05:00 06:00 07:00 Pulse 77 77 76 B/P (MAP) 118/67 (84) 125/89 (101) 133/81 (98) O2 Delivery Room Air Room Air Room Air Signs of Distress by FHT Signs of Distress no Rupture of Membranes Spontaneous Ruture of Membrane: No Amniotic Membrane Rupture Time: 0625 Amniotic Membrane Fluid Desc.: Clear Induction/Anesthesia Medications epidural L&D Stage2 Stage Two Stage II Date: Apr 01, 2021 Stage II Time: 09:14 Monitors and Tracing Monitor Mode: Internal Heart Rate: 120 Monitor Accelerations: Uniform Monitor Decelerations: None Jointer Machine Operator Variability: Average (6-10) Short Term Variability: Present Position: Left Occiput Anterior Presentation: Vertex Signs of Distress by FHT Signs of Distress no Cord Descript/Complications Cord Vessel Description: 3 Vessels Delivery Type Delivery Method: Spontaneous Vaginal Episiotomy/Perineal Laceration Laceraction(s)/Extensions: No Condition of Delivery 1 minute Comment: 9 5 minute Comment: 9 Condition of Infant Condition of Infant: Living Exam: No Observed Abnormalities Resuscitation Resuscitation: N/A - Spontaneous Resp L&D Stage3 Stage Three Stage III Date: Apr 01, 2021 Stage III Time: 09:18 Pictocin Pitocin ml/hr: 125 Placenta Delivery Placenta Delivery: Spontaneous Delivery Summary Summary Estimated blood loss (mL): 100 Condition of Delivery Examined: Cervix Examined Post Hemorrhage: No Intervention Required no JOCELIN VIGIL MD Apr 01, 2021 10:42
[2021-04-01] MEDS ORDERED: OXYTOCIN PRE-MIX DRIP 500 ML IV SCH (10:45)
[2021-04-01] MEDS ORDERED: MEASLES,MUMPS,RUBELLA 1 EA INJ SQ ONE (10:45)
[2021-04-01] MEDS ORDERED: TETANUS,DIPTH,PERTUSS P/F (BOOSTRIX) 0.5 ML VIAL IM ONE (10:45)
[2021-04-01] MEDS ORDERED: BENZOCAINE/MENTHOL (DERMOPLAST) 56 ML CAN TP PRN (10:45)
[2021-04-01] MEDS ORDERED: MEPIVACAINE (CARBOCAINE) 2% 50 ML VIAL IJ ONE (11:00)
[2021-04-01] MEDS ORDERED: ACETAMINOPHEN 500 MG TAB (TYLENOL) PO SCH (12:00)
[2021-04-01] MEDS: IBUPROFEN 600 MG (MOTRIN) TAB PO SCH ×2 (12:01→19:23)
[2021-04-01] MEDS: WITCH HAZEL(TUCKS) 40 EA JAR TOP PRN (12:02)
[2021-04-01 12:51] LABS: AMPHETAMINE SCREEN, URINE NEGATIVE (NEGATIVE); BARBITURATE SCREEN URINE NEGATIVE (NEGATIVE); BENZODIAZEPINES SCREEN URINE NEGATIVE (NEGATIVE); CANNABINOID SCREEN, URINE POSITIVE (NEGATIVE); COCAINE SCREEN URINE NEGATIVE (NEGATIVE); METHADONE STAT NEGATIVE (NEGATIVE); METHAMPHETAMINE SCREEN URINE S NEGATIVE (NEGATIVE); OPIATE SCREEN URINE NEGATIVE (NEGATIVE); OXYCODONE STAT NEGATIVE (NEGATIVE); PROPOXYPHENE STAT NEGATIVE (NEGATIVE); TRICYCLIC ANTIDEPRESSANTS SCRE NEGATIVE (NEGATIVE)
[2021-04-01] MEDS ORDERED: CATHETER FLUSH 10 ML SYR IV SCH (14:00)
[2021-04-01] MEDS ORDERED: ACETAMINOPHEN 500 MG TAB (TYLENOL) PO PRN (14:30)
[2021-04-01] MEDS: DOCUSATE SODIUM 100 MG (COLACE) CAP PO SCH (19:23)
[2021-04-02] MEDS: IBUPROFEN 600 MG (MOTRIN) TAB PO SCH ×2 (00:50→06:02)
[2021-04-02 03:08] VITALS: BP 111/55
[2021-04-02 05:47] LABS: BASOPHILS % (AUTO) 0 % (0-10); EOSINOPHILS # (AUTO) 0.1 10^3/uL (0.0-0.3); EOSINOPHILS % (AUTO) 1 % (0-10); HEMATOCRIT 30 % (35-52); LYMPHOCYTES # (AUTO) 3.1 10^3/uL (1.0-4.0); LYMPHOCYTES % (AUTO) 24 % (12-44); MEAN CORPUSCULAR HEMOGLOBIN 31 pg (25-34); MEAN CORPUSCULAR HGB CONC 34 g/dL (32-36); MEAN CORPUSCULAR VOLUME 93 fL (80-99); MEAN PLATELET VOLUME 10.5 fL (9.0-12.2); MONOCYTES # (AUTO) 0.9 10^3/uL (0.0-1.0); MONOCYTES % (AUTO) 7 % (0-12); NEUTROPHILS # (AUTO) 8.8 10^3/uL (1.8-7.8); NEUTROPHILS % (AUTO) 68 % (42-75); PLATELET COUNT 211 10^3/uL (130-400)
[2021-04-02] MEDS: WITCH HAZEL(TUCKS) 40 EA JAR TOP PRN ×2 (06:03→11:08)
[2021-04-02 07:31] VITALS: BP 121/71
[2021-04-02] MEDS: DOCUSATE SODIUM 100 MG (COLACE) CAP PO SCH (07:31)
--- NOTE | 2021-04-02 08:17 | Discharge Summary ---
Diagnosis/Chief Complaint Date of Admission Mar 31, 2021 at 18:04 Date of Discharge April 02, 2021 Admission Diagnosis Admission Diagnosis 1. Intrauterine at 40 weeks 4 days gestation Discharge Diagnosis 1. Intrauterine at 40 weeks 4 days gestation Chief Complaint/HPI Chief Complaint/HPI 20-year-old 4 now L1 who initially presented for induction of labor at 40 weeks 4 days gestation. Her care was obtained through [facility], [facility] and [facility] as well as extruder operator multiple in [facility]. She was noted to be negative for group B strep status. Discharge Summary-OBS Procedures 1. Epidural per anesthesia 2. Spontaneous vaginal delivery Discharge Physical Examination Allergies: Coded Allergies: No Known Drug Allergies (Unverified , 02/03/19) Vitals & I&Os Vital Sign - Last 12Hours Date Time Temp Pulse Resp B/P (MAP) Pulse Ox O2 Delivery O2 Flow Rate FiO2 04/02/21 07:31 36.7 78 16 121/71 (88) 98 04/02/21 03:08 Room Air General Appearance: Alert Respiratory: Clear to Auscultation Cardiovascular: Regular Rate Abdominal: Soft (with uterus firm) Hospital Course Was the Problem List Reviewed?: Yes patient was admitted during the evening of March 31, 2021. She underwent Cytotec induction and received 2 doses following admission. She ultimately developed a contraction pattern. She dilated to 3 cm by the morning of March for an amniotomy was performed with clear fluid noted. She quickly went on to completion and delivered over an intact perineum a term viable male. See labor and delivery note for full details. following delivery patient underwent routine care orders. She had no complications during the remainder of stay. Her hemoglobin in the morning of April 02 was noted to be 10.0 compared to admission of 11.7. She did not develop any chest pain or shortness of breath. There was no leg pain. She tolerated regular diet. She was eager for dismissal during the early afternoon of April 02, 2021. Labs Laboratory Tests 04/01/21 11:45: 04/02/21 05:27: White Blood Count 13.0H, Red Blood Count 3.21L, Hemoglobin 10.0L, Hematocrit 30L , Mean Corpuscular Volume 93, Mean Corpuscular Hemoglobin 31, Mean Corpuscular Hemoglobin Concent 34, Red Cell Distribution Width 13.5, Platelet Count 211, Mean Platelet Volume 10.5, Immature Granulocyte % (Auto) 1, Neutrophils (%) (Auto) 68, Lymphocytes (%) (Auto) 24, Monocytes (%) (Auto) 7, Eosinophils (%) (Auto) 1, Basophils (%) (Auto) 0, Neutrophils # (Auto) 8.8H, Lymphocytes # (Auto) 3.1, Monocytes # (Auto) 0.9, Eosinophils # (Auto) 0.1, Basophils # (Auto) 0.0, Immature Granulocyte # (Auto) 0.1 Discharge Instructions to patient/family Please see electronic discharge instructions given to patient. Discharge Medications Reviewed and agree with Discharge Medication list on patient's Discharge Instruction sheet JOCELIN VIGIL MD Apr 02, 2021 08:17
[2021-04-02] MEDS ORDERED: IBUP-844 PO (08:18)
--- NOTE | 2021-04-02 08:19 | Discharge Inst-Women's Service ---
Discharge Inst-Women's Serv Depart Medication/Instructions New, Converted or Re-Newed RX: Transmitted to Pharmacy ([facility]) Problems Reviewed?: Yes Consults/Follow Up Additional Follow Up: Yes (Dr Vigil at [facility] in 6 weeks) Diet Discharge Diet: Regular Diet Return to The Hospital For: as below Symptoms to Report to : Bleeding Excessive, Fever Over 101 Degrees F, Vaginal Discharge Foul For Any Problems or Questions: Contact Your Physician JOCELIN VIGIL MD Apr 02, 2021 08:19
[2021-04-02] MEDS ORDERED: MEASLES,MUMPS,RUBELLA 1 EA INJ ONE (10:52)
[2021-04-02 11:09] VITALS: BP 139/74
--- NOTE | 2021-04-02 13:47 | Anesthesia-Regional Post-Op ---
Regional Patient Condition Mental Status: Alert, Oriented x3 Circulation: Same as Pre-Op Headache: Absent Sensation: Full Recovery Motor Block: Absent Post Op Complications Complications None Follow Up Care/Instructions Patient Instructions None needed. Anesthesia/Patient Condition Patient is doing well, no complaints, stable vital signs, no apparent adverse anesthesia problems. No complications reported per nursing. SARAH PARRA CRNA Apr 02, 2021 13:46
== END 2021-04-02 13:49 | disposition home or self-care (01) | DRG 807 ==
LOC: LDRP 18:04
PROVIDERS: ADMIT Family Medicine; ATTEND Family Medicine
PROC: 10E0XZZ Delivery of Products of Conception, External Approach (ICD-10-PCS; principal; 2021-04-01)
DX: O48.0 Post-term pregnancy (principal); Z37.0 Single live birth; Z3A.40 40 weeks gestation of pregnancy
CPT/HCPCS: 36415; 80306; 81000; 85025; 86850; 86900; 86901; 90707

== ENCOUNTER 2022-07-30 09:00 | Outpatient (CLI) | payer MEDICAID ==
[~2022-07-30] VITALS: Ht 162.6 cm; Wt 78.2 kg
[~2022-07-30 09:00] MED LIST changes: +IBUP-844 PO; +PNV11TAB5 PO
[2022-07-30 09:20] VITALS: BP 116/69
[2022-07-30 09:57] LABS: BILIRUBIN,URINE NEGATIVE (NEGATIVE); CLARITY,URINE CLEAR; COLOR,URINE YELLOW; GLUCOSE, URINE (UA) NEGATIVE (NEGATIVE); KETONES,URINE NEGATIVE (NEGATIVE); LEUKOCYTE ESTERASE ,URINE NEGATIVE (NEGATIVE); NITRITE,URINE NEGATIVE (NEGATIVE); PROTEIN,URINE NEGATIVE (NEGATIVE)
[2022-07-30 10:05] LABS: BACTERIA,URINE NEGATIVE /HPF; WBC,URINE RARE /HPF
[2022-07-30 10:06] LABS: AMORPHOUS SEDIMENT,UR RARE AMOR PHOSPHATE /LPF
[2022-07-30 10:12] LABS: AMPHETAMINE SCREEN, URINE NEGATIVE (NEGATIVE); BARBITURATE SCREEN URINE NEGATIVE (NEGATIVE); BENZODIAZEPINES SCREEN URINE NEGATIVE (NEGATIVE); CANNABINOID SCREEN, URINE POSITIVE (NEGATIVE); COCAINE SCREEN URINE NEGATIVE (NEGATIVE); METHADONE STAT NEGATIVE (NEGATIVE); OPIATE SCREEN URINE NEGATIVE (NEGATIVE); OXYCODONE STAT NEGATIVE (NEGATIVE); PROPOXYPHENE STAT NEGATIVE (NEGATIVE); TRICYCLIC ANTIDEPRESSANTS SCRE NEGATIVE (NEGATIVE)
[2022-07-30] MEDS ORDERED: D5 LR IV SOLUTION 1,000 ML IV SCH (11:15)
--- NOTE | 2022-07-30 13:04 | Diagnostic Imaging Report ---
INDICATION: IUGR. TECHNIQUE: Multiple real-time grayscale images were obtained over the gravid uterus. COMPARISON: None FINDINGS: There is a single live fetus in a cephalic presentation. heart rate was recorded at 132 bpm. Placenta is anterior. No previa is detected. The amniotic fluid index is 12.3 cm. Cervical length is 3.3 cm. kidneys, bladder and stomach are unremarkable. brains unremarkable. There is a four-chamber heart. There is a three-vessel cord with normal insertion. The spine is unremarkable. Biometrical measurements are as follows: Biparietal 8.68 cm, age 35 weeks 1 days. Head circumference 32.13 cm, age 36 weeks 2 days. Abdominal circumference 29.36 cm, age 33 weeks 3 days. Femur length 6.04 cm, age 31 weeks 3 days. Sonographic estimate age: 34 weeks 1 days. Sonographic estimated date of delivery: 09/09/2022. Estimated Weight: 2148 gm (+/- 314 gm). LMP percentile: 3%. heart rate: 132 beats per minute. number: 1 of 1. IMPRESSION: Single live IUP measuring 34 weeks gestational age with estimated of confinement sonographically of 09/09/2022. Dictated by: Dictated on workstation # [id number]
--- NOTE | 2022-07-31 08:06 | Physician Query-Final Dx ---
ARTIE,07/31/22 0806: Clinic Account Progress/Dx Physician Query: Please give diagnosis Please include # weeks gestation Date of Service Jul 30, 2022 at 09:00 DOUG VALLES MD 07/31/22 2002: Clinic Account Progress/Dx DIAGNOSIS: Diagnosis: (1) contractions (2) 36 weeks gestation of Diagnosis contractions with no cervical change, reassuring status. US with persistent possible IUGR (reported by patient to have IUGR at previous provider, records not available), follow up in clinic. ARTIE,JunJul 31, 2022 08:06 DOUG VALLES MD Jul 31, 2022 20:02
== END 2022-07-30 13:00 | disposition home or self-care (01) ==
LOC: WSo 09:00 → LDRP 09:00 → WSo 13:00
PROVIDERS: ATTEND Family Medicine
DX: O47.1 False labor at or after 37 completed weeks of gestation (principal); Z3A.34 34 weeks gestation of pregnancy
CPT/HCPCS: 76805; 80306; 81000; 87088

== ENCOUNTER 2022-07-31 13:02 | Inpatient (IN) | payer MEDICAID ==
[2022-07-31] MEDS ORDERED: LACTATED RINGERS 1,000 ML IV SCH (13:30)
[2022-07-31 13:44] LABS: BASOPHILS % (AUTO) 0 % (0-10); EOSINOPHILS # (AUTO) 0.1 10^3/uL (0.0-0.3); EOSINOPHILS % (AUTO) 0 % (0-10); HEMATOCRIT 28 % (35-52); HEMOGLOBIN 9.6 g/dL (11.5-16.0); LYMPHOCYTES # (AUTO) 2.3 10^3/uL (1.0-4.0); LYMPHOCYTES % (AUTO) 18 % (12-44); MEAN CORPUSCULAR HEMOGLOBIN 31 pg (25-34); MEAN CORPUSCULAR HGB CONC 35 g/dL (32-36); MEAN CORPUSCULAR VOLUME 89 fL (80-99); MEAN PLATELET VOLUME 10.7 fL (9.0-12.2); MONOCYTES # (AUTO) 0.7 10^3/uL (0.0-1.0); MONOCYTES % (AUTO) 6 % (0-12); NEUTROPHILS # (AUTO) 9.6 10^3/uL (1.8-7.8); NEUTROPHILS % (AUTO) 75 % (42-75); PLATELET COUNT 182 10^3/uL (130-400); WHITE BLOOD COUNT 12.7 10^3/uL (4.3-11.0)
[2022-07-31 14:00] VITALS: BP 114/74
[2022-07-31 14:14] LABS: FIBRIN DEGRADATION PRODUCTS 18.87 UG/ML (0.00-0.49); INR 1.1 (0.8-1.4); PROTHROMBIN TIME PATIENT 14.4 SEC (12.2-14.7)
[2022-07-31] MEDS ORDERED: fentaNYL INJ 100 MCG/2 ML AMP ONE (14:22)
[2022-07-31] MEDS ORDERED: hydrOXYzine (VISTARIL/ATARAX) 25 MG capsule/tablet PO ONE (14:30)
[2022-07-31] MEDS ORDERED: fentaNYL INJ 100 MCG/2 ML AMP IVP ONE (14:30)
[2022-07-31] MEDS ORDERED: hydrOXYzine (VISTARIL/ATARAX) 25 MG capsule/tablet ONE (14:32)
[2022-07-31] MEDS: LACTATED RINGERS 1,000 ML IV SCH (14:43)
--- NOTE | 2022-07-31 16:15 | Diagnostic Imaging Report ---
INDICATION: patient with vaginal bleeding. TECHNIQUE: Limited OB sonography performed and compared to the previous day. FINDINGS: Single live intrauterine fetus is seen measuring 36 weeks 3 days by composite measurements. Fetus is in cephalic presentation. Placenta is anterior with no evidence of previa. Amniotic fluid index is 12.5 cm. heart rate is 126 BPM. Cervical length is 3.3 cm. Distance from the placental tip to the internal os was 12.1 cm. IMPRESSION: Limited OB sonography performed compared to the prior study of yesterday. No acute abnormality is visualized, as above. Dictated by: Dictated on workstation # [id number]
[2022-07-31] MEDS: fentaNYL INJ 100 MCG/2 ML AMP IVP PRN ×4 (16:40→22:51)
[2022-07-31 16:42] VITALS: BP 97/54
[2022-07-31 18:45] VITALS: BP 108/59
[2022-07-31 19:31] VITALS: BP 115/73
[2022-07-31] MEDS ORDERED: AMPICILLIN FOR IV USE 2,000 MG in NS (IVPB) 50 ML IV SCH (22:41)
[2022-07-31] MEDS ORDERED: AMPICILLIN 2,000 MG/14.8 ML (IV USE) ONE (22:44)
[2022-07-31] MEDS ORDERED: MINERAL OIL 30 ML UDC TOP PRN (22:45)
[2022-07-31] MEDS ORDERED: D5 LR IV SOLUTION 1,000 ML IV SCH (22:45)
[2022-07-31] MEDS ORDERED: D5 LR IV SOLUTION 1,000 ML IV ONE (22:45)
[2022-07-31] MEDS ORDERED: NS (IVPB) 50 ML ONE (22:45)
[2022-07-31 23:09] LABS: BASOPHILS % (AUTO) 0 % (0-10); EOSINOPHILS # (AUTO) 0.1 10^3/uL (0.0-0.3); EOSINOPHILS % (AUTO) 1 % (0-10); HEMATOCRIT 26 % (35-52); HEMOGLOBIN 9.1 g/dL (11.5-16.0); LYMPHOCYTES # (AUTO) 2.4 10^3/uL (1.0-4.0); LYMPHOCYTES % (AUTO) 20 % (12-44); MEAN CORPUSCULAR HEMOGLOBIN 31 pg (25-34); MEAN CORPUSCULAR HGB CONC 35 g/dL (32-36); MEAN CORPUSCULAR VOLUME 90 fL (80-99); MEAN PLATELET VOLUME 10.2 fL (9.0-12.2); MONOCYTES # (AUTO) 0.8 10^3/uL (0.0-1.0); MONOCYTES % (AUTO) 7 % (0-12); NEUTROPHILS # (AUTO) 8.9 10^3/uL (1.8-7.8); NEUTROPHILS % (AUTO) 72 % (42-75); PLATELET COUNT 155 10^3/uL (130-400); WHITE BLOOD COUNT 12.2 10^3/uL (4.3-11.0)
[2022-08-01] VITALS (42 sets, daily range): BP systolic 87–135; BP diastolic 49–90
[2022-08-01] MEDS ORDERED: ONDANSETRON 4 MG/2 ML (SDV) Z0FRAN ONE (00:15)
[2022-08-01] MEDS: fentaNYL INJ 100 MCG/2 ML AMP IVP PRN (00:48)
[2022-08-01] MEDS ORDERED: fentaNYL 2 mcg/ml BUPIVA 0.125 100 ML ONE (01:00)
[2022-08-01] MEDS ORDERED: LIDOCAINE PF 2% 5 ML (XYLOCAINE) VIAL ONE (01:03)
[2022-08-01] MEDS ORDERED: fentaNYL INJ 100 MCG/2 ML AMP ONE (01:03)
[2022-08-01] MEDS ORDERED: ONDANSETRON 4 MG/2 ML (SDV) Z0FRAN IV PRN (01:45)
[2022-08-01] MEDS ORDERED: METOCLOPRAMIDE INJ 10 MG/2 ML (REGLAN) IV PRN (01:45)
[2022-08-01] MEDS ORDERED: diphenhydrAMINE 50 MG/ML INJ (BENADRYL) IV PRN (01:45)
[2022-08-01] MEDS ORDERED: LACTATED RINGERS 1,000 ML IV SCH (01:45)
[2022-08-01] MEDS ORDERED: fentaNYL 2 mcg/ml BUPIVA 0.125 100 ML EPI SCH (01:45)
[2022-08-01] MEDS ORDERED: NALOXONE 0.4 MG/ML 1 ML (NARCAN) VIAL IV PRN ×2 (01:45)
[2022-08-01] MEDS ORDERED: AMPICILLIN FOR IV USE 1,000 MG in NS (IVPB) 50 ML IV SCH (02:45)
[2022-08-01] MEDS: LACTATED RINGERS 1,000 ML IV SCH (02:59)
--- NOTE | 2022-08-01 05:03 | History & Physical-OB ---
OB - Chief Complaint & HPI Date/Time Date of Admission: Date of Admission: Jul 31, 2022 at 22:45 Date seen by a Provider: Aug 01, 2022 Time Seen by a Provider: 04:58 Chief Complaint/History OB-Reason for Admission/Chief: Labor Hx : 6 Hx Para: 1 Expected Date of Delivery: Aug 25, 2022 Gestational Age in Weeks: 36 Gestational Age in Days: 3 Other reason for admission: presented to Labor and Delivery at 36w3d with acute onset of vaginal bleeding on 07/31/22, this was managed by Dr. Tabor. She had CBC remarkable only for anemia, DIC panel with elevated D dimer but otherwise normal, and US done with no clear abruption and no previa. Bleeding did stop and heart rate status remained reassuring, and she was kept for monitoring with an attempt to get to 37 weeks. However, overnight she began to contract more frequently and changed from 1 to 3 cm, at that time ampicillin was started. She continued to progress through labor and is now 9+ centimeters. She had somewhat limited care, was seen in [place], [place] starting around 20 weeks and states she has always been told her ultrasounds measure a couple of weeks earlier than her due date which is based on her LMP, but says the doctor did give her due date based on LMP. She was reportedly being followed with twice weekly testing for what sounds like IUGR with some umbilical artery concern possibly as well. She moved to [place] 2 weeks ago. She states she was given steroids at the end of May for lung maturity. Records have been requested but not received. History of Labs O+, antibody neg. Allergies and Home Medications Allergies Coded Allergies: No Known Drug Allergies (Unverified , 02/03/19) Patient Home Medication List Home Medication List Reviewed: Yes Dcy227/FA/Omega3/Dha/Fish Oil ( Gummies) 1 Each Tab.chew, 2 EACH PO DAILY, (Reported) Entered as Reported by: LUZ NOGUERA on 03/31/211856 Last Action: Reviewed Discontinued Medications Ibuprofen (Ibu) 600 Mg Tablet, 600 MG PO Q6HR Discontinued Reason: No Longer Taking Prescribed by: JOCELIN VIGIL on 04/02/21 0818 OB - History Hx of Present Care: Yes Obstetrical Complications: Growth Restriction Obstetrical History Hx : 6 Hx Para: 1 Hx # Term Pregnancies: 0 Hx # Pregnancies: 0 Number of Living Children: 0 Hx Total # of Abortions (Spona: 4 Hx Multiple Gestation: No Hx Ectopic : No Hx Stillbirth: No Hx Complication: No Hx Induced Hypertens: No Hx Maternal Gestational Diabet: No Hx Hemorrhage: No Delivery History Hx Dystocia: No Hx Forceps Assisted Delivery: No Hx Vacuum Extraction Assisted: No Hx Placenta Abnormality: No Hx Distress: No Hx Large For Gestational Age I: No Hx Section: No Hx Vaginal Delivery Post C-Sec: No Hx Blood Disorders: No Adverse Rxn to Tranfusion: No Patient Past Medical History no chronic medical problems Social History/Family History Alcohol Use: Denies Use Recreational Drug Use: Yes Smoking Cessation: Former smoker 2nd Hand Smoke Exposure: Yes Immunizations Influenza Vaccine Up-to-Date: Yes; Up-to-Date Tetanus Booster (TDap): Unknown Rubella: unknown RPR/VDRL: Unknown GBS Status: Unknown HBsAG: Unknown OB - Admission Exam Physical Exam Vitals: Vital Signs 07/31/22 19:31 Temp 36.3 Pulse 88 Resp 18 B/P (MAP) 115/73 (87) Pulse Ox 100 O2 Delivery Room Air Abdomen: Gravid Extremities: Normal Cervical Dilatation: 10cm Effacement: 100% Membranes: Intact Heart Rate: 140's Penitentiary Variability: Minimal (3-5) Contractions on Admission: < 5 Minutes Apart Labs Laboratory Tests Test 07/31/22 13:36 07/31/22 23:03 Range/Units White Blood Count 12.7 H 12.2 H 4.3-11.0 10^3/uL Red Blood Count 3.10 L 2.94 L 3.80-5.11 10^6/uL Hemoglobin 9.6 L 9.1 L 11.5-16.0 g/dL Hematocrit 28 L 26 L 35-52 % Mean Corpuscular Volume 89 90 80-99 fL Mean Corpuscular Hemoglobin 31 31 25-34 pg Mean Corpuscular Hemoglobin Concent 35 35 32-36 g/dL Red Cell Distribution Width 13.0 13.0 10.0-14.5 % Platelet Count 182 155 130-400 10^3/uL Mean Platelet Volume 10.7 10.2 9.0-12.2 fL Immature Granulocyte % (Auto) 0 1 % Neutrophils (%) (Auto) 75 72 42-75 % Lymphocytes (%) (Auto) 18 20 12-44 % Monocytes (%) (Auto) 6 7 0-12 % Eosinophils (%) (Auto) 0 1 0-10 % Basophils (%) (Auto) 0 0 0-10 % Neutrophils # (Auto) 9.6 H 8.9 H 1.8-7.8 10^3/uL Lymphocytes # (Auto) 2.3 2.4 1.0-4.0 10^3/uL Monocytes # (Auto) 0.7 0.8 0.0-1.0 10^3/uL Eosinophils # (Auto) 0.1 0.1 0.0-0.3 10^3/uL Basophils # (Auto) 0.0 0.0 0.0-0.1 10^3/uL Immature Granulocyte # (Auto) 0.1 0.1 0.0-0.1 10^3/uL Prothrombin Time 14.4 12.2-14.7 SEC INR Comment 1.1 0.8-1.4 Activated Partial Thromboplast Time 28 24-35 SEC Fibrinogen 279 221-496 MG/DL D-Dimer 18.87 H 0.00-0.49 UG/ML OB - Assessment/Plan/Diagnosis Assessment Admission Dx Vaginal bleeding in labor Admission Status: Inpatient Order (span 2 midnights) Reason for Inpatient Admission: labor Plan Plan: Expectant Management Problems: (1) labor Assessment & Plan: s/p steroids in May Ampicillin for GBS unknown Qualifiers: (2) Vaginal bleeding Assessment & Plan: Suspect partial abruption, status stable, labs reassuring. (3) IUGR (intrauterine growth restriction) Assessment & Plan: Per patient report Peds present for delivery DOUG VALLES MD Aug 01, 2022 05:03
[2022-08-01] MEDS ORDERED: LIDOCAINE 1% INJ 10 ML VIAL ONE (05:22)
[2022-08-01] MEDS ORDERED: OXYTOCIN PRE-MIX DRIP 500 ML IV ONE ×2 (05:22→06:06)
[2022-08-01] MEDS: OXYTOCIN PRE-MIX DRIP 500 ML IV SCH ×2 (05:33→06:07)
--- NOTE | 2022-08-01 05:59 | OB Labor & Delivery Record ---
Vag Delivery Note Vag Delivery Note Date of Delivery: 08/01/22 Preoperative Diagnosis: Nadiya Weems is a (22 /Para 6 / 1, Gestational Age (wks)36with 4 days Postoperative Diagnosis: Same Surgeon: DOUG VALLES Call Out Clerk: Jennifer Calvillo, OMS4 Anesthesia: Epidural Delivery Type: Findings: Viable male , apgars 8/9, weight pending Lacerations: bilateral periurethral abrasions Intact placenta with 3 vessel cord. No nuchal cord, body cord or shoulder dystocia Estimated Blood Loss: 600 ml Complications: None Condition: Stable Description of Procedure: The patient is a 22 year old female who presented with vaginal bleeding at 36w3d, suspected partial placental abruption. She was admitted and informed consent was obtained. Her labor course was remarkable for bleeding, but status remained reassuring. She progressed to complete dilatation and began to push. She was then set up for delivery. The 's head was delivered atraumatically in the OA position. The shoulders and remainder of the infant's body were then delivered without difficulty. Upon delivery, the infant was vigorous and placed on maternal chest and the mouth and nares were bulb suctioned. After a delay cord was doubly clamped and cut and the infant was handed off to nursery staff and the attending Machine Shorthand Teacher. The placenta with 3-vessel cord delivered via Margi, after which a large clot about 12 cm in diameter was expressed, and there was found to be minimal bleeding after. Inspection of the placenta did reveal an area of possible concern, uncertain whether location of clot vs small piece missing. After giving 75 mcg IV fentanyl, manual exploration of the uterus was done and no retained placenta was felt. Vigorous fundal massage was performed and the fundus was found to be firm. IV oxytocin was given. Examination of the vagina and perineum revealed bilateral periurethral abrasions not requiring repair. Following the delivery, sponge, instrument and needle counts were correct. Mom was in stable condition in the labor suite and the baby was transferred to the nursery with Machine Shorthand Teacher for further stabilization. Vitals - Labs Vital Signs - I&O Vital Signs Date Time Temp Pulse Resp B/P (MAP) Pulse Ox O2 Delivery O2 Flow Rate FiO2 07/31/22 19:31 36.3 88 18 115/73 (87) 100 Room Air 07/31/22 18:45 36.6 80 18 108/59 (75) 07/31/22 16:42 68 18 97/54 (68) Room Air 07/31/22 14:00 36.7 75 20 114/74 98 Room Air I & O 08/01/22 07:00 Output Total 0 ml Balance 0 ml Labs Laboratory Tests 07/31/22 13:36: White Blood Count 12.7H, Red Blood Count 3.10L, Hemoglobin 9.6L, Hematocrit 28L, Mean Corpuscular Volume 89, Mean Corpuscular Hemoglobin 31, Mean Corpuscular Hemoglobin Concent 35, Red Cell Distribution Width 13.0, Platelet Count 182, Mean Platelet Volume 10.7, Immature Granulocyte % (Auto) 0, Neutrophils (%) (Auto) 75, Lymphocytes (%) (Auto) 18, Monocytes (%) (Auto) 6, Eosinophils (%) (Auto) 0, Basophils (%) (Auto) 0, Neutrophils # (Auto) 9.6H, Lymphocytes # (Auto) 2.3, Monocytes # (Auto) 0.7, Eosinophils # (Auto) 0.1, Basophils # (Auto) 0.0, Immature Granulocyte # (Auto) 0.1, Prothrombin Time 14.4, INR Comment 1.1, Activated Partial Thromboplast Time 28, Fibrinogen 279, D-Dimer 18.87H 07/31/22 23:03: White Blood Count 12.2H, Red Blood Count 2.94L, Hemoglobin 9.1L, Hematocrit 26L, Mean Corpuscular Volume 90, Mean Corpuscular Hemoglobin 31, Mean Corpuscular Hemoglobin Concent 35, Red Cell Distribution Width 13.0, Platelet Count 155, Mean Platelet Volume 10.2, Immature Granulocyte % (Auto) 1, Neutrophils (%) (Auto) 72, Lymphocytes (%) (Auto) 20, Monocytes (%) (Auto) 7, Eosinophils (%) (Auto) 1, Basophils (%) (Auto) 0, Neutrophils # (Auto) 8.9H, Lymphocytes # (Auto) 2.4, Monocytes # (Auto) 0.8, Eosinophils # (Auto) 0.1, Basophils # (Auto) 0.0, Immature Granulocyte # (Auto) 0.1 DOUG VALLES MD Aug 01, 2022 05:59
[2022-08-01] MEDS ORDERED: WITCH HAZEL(TUCKS) 40 EA JAR TOP PRN (06:00)
[2022-08-01] MEDS ORDERED: MEASLES,MUMPS,RUBELLA 1 EA INJ SQ ONE (06:00)
[2022-08-01] MEDS ORDERED: CATHETER FLUSH 10 ML SYR IV SCH ×2 (06:00)
[2022-08-01] MEDS ORDERED: BENZOCAINE/MENTHOL (DERMOPLAST) 56 ML CAN TP PRN (06:00)
[2022-08-01] MEDS ORDERED: TETANUS,DIPTH,PERTUSS P/F (BOOSTRIX) 0.5 ML VIAL IM ONE (06:00)
[2022-08-01 06:38] LABS: HEMOGLOBIN 8.4 g/dL (11.5-16.0)
[2022-08-01] MEDS ORDERED: IBUPROFEN 600 MG (MOTRIN) TAB PO ONE (06:38)
[2022-08-01] MEDS: IBUPROFEN 600 MG (MOTRIN) TAB PO SCH ×3 (06:40→17:55)
[2022-08-01] MEDS ORDERED: PRENATAL VITAMIN 1 EA TAB PO SCH (07:00)
[2022-08-01] MEDS ORDERED: FERROUS SULF 325 MG (IRON) TAB PO SCH (07:00)
[2022-08-01] MEDS ORDERED: DOCUSATE SODIUM 100 MG (COLACE) CAP PO SCH (09:00)
--- NOTE | 2022-08-01 09:56 | Anesthesia-Regional Post-Op ---
Regional Patient Condition Mental Status: Alert, Oriented x3 Circulation: Same as Pre-Op Headache: Absent Sensation: Full Recovery Motor Block: Absent Post Op Complications Complications None Follow Up Care/Instructions Patient Instructions None needed. Anesthesia/Patient Condition Patient is doing well, no complaints, stable vital signs, no apparent adverse anesthesia problems. No complications reported per nursing. CHEYENNE WEBB CRNA Aug 01, 2022 09:56
[2022-08-01] MEDS ORDERED: IRON SUCROSE 200 MG/10 ML (VENOFER) VIAL IV NR (12:30)
[2022-08-01] MEDS ORDERED: MEASLES,MUMPS,RUBELLA 1 EA INJ ONE (15:04)
[2022-08-01] MEDS ORDERED: LIDOCAINE 1% INJ 20 ML VIAL IJ PRN (16:00)
[2022-08-01] MEDS ORDERED: FERR325T24 PO (17:12)
[2022-08-01] MEDS ORDERED: DOCU100C37 PO (17:12)
[2022-08-01] MEDS ORDERED: IBUP-844 PO (17:12)
[2022-08-01 17:57] LABS: HEMATOCRIT 27 % (35-52); HEMOGLOBIN 9.1 g/dL (11.5-16.0); MEAN CORPUSCULAR HEMOGLOBIN 31 pg (25-34); MEAN CORPUSCULAR HGB CONC 34 g/dL (32-36); MEAN CORPUSCULAR VOLUME 90 fL (80-99); MEAN PLATELET VOLUME 10.7 fL (9.0-12.2); PLATELET COUNT 172 10^3/uL (130-400); WHITE BLOOD COUNT 9.8 10^3/uL (4.3-11.0)
--- NOTE | 2022-08-01 20:19 | Discharge Summary ---
Discharge Summary Hospital Course Problems Reviewed?: Yes Problems/Diagnosis: (1) labor Status: Resolved Resolution Date/Time: 08/01/22 @ 09:51 Qualifiers: Qualified Codes: O60.14X0 - labor third trimester with delivery third trimester, not applicable or unspecified (2) IUGR (intrauterine growth restriction) Status: Resolved Resolution Date/Time: 08/01/22 @ 09:51 (3) Vaginal bleeding Status: Resolved Resolution Date/Time: 08/01/22 @ 09:51 Hospital Course Date of Admission: Jul 31, 2022 at 22:45 Admission Diagnosis : Vaginal bleeding in third trimester labor in third trimester 36 weeks gestation IUGR complicating Family Physician/Provider: Ange Tabor MD Date of Discharge: 08/01/22 Discharge Diagnosis: Partial placental abruption at 36 weeks gestation Spontaneous vaginal delivery Asymptomatic acute blood loss anemia Hospital Course: 22 yo G6 now P2 prestented to Labor and Delivery at 36w3d with heavy vaginal bleeding, status reassuring and bleeding slowed, contractions persisted. She had limited care with onset around 20 weeks in [place], [place], and reported having growth problems and possibly cord blood flow abnormalities. She said she was given steroids in May 2022 due to this and reported plan for delive ry after 34 weeks. She moved to [place] 2 weeks prior to this admission, and reported having difficulty getting an appointment, but did see Dr. Tabor the day of admission where GBS swab was done and pending. Labs were negative for DIC and the status remained reassuring, so she was admitted for observation per Dr. Tabor with plan to deliver at 37 weeks if possible. She had ultrasound done which showed no clear placental abruption or other abnormalities, in 3% for EFW. However, overnight she began to contract more regularly and had cervical change and continued into active labor. status remained reassuring throughout. She delivered via on 08/01/22 with no complications. Large clot about the same size as placenta was expressed after placenta delivery and manual exploration of the uterus was done to ensure no retained products. She had minimal bleeding and requested early discharge due to need to transfer to NICU. As she had no abnormal bleeding and vital signs were reassuring for 12 hours , she was allowed to leave with strict precautions for monitoring and return to emergency care if needed. Labs and Pending Lab Test: Laboratory Tests 07/31/22 23:03: White Blood Count 12.2H, Red Blood Count 2.94L, Hemoglobin 9.1L, Hematocrit 26L, Mean Corpuscular Volume 90, Mean Corpuscular Hemoglobin 31, Mean Corpuscular Hemoglobin Concent 35, Red Cell Distribution Width 13.0, Platelet Count 155, Mean Platelet Volume 10.2, Immature Granulocyte % (Auto) 1, Neutrophils (%) (Auto) 72, Lymphocytes (%) (Auto) 20, Monocytes (%) (Auto) 7, Eosinophils (%) (Auto) 1, Basophils (%) (Auto) 0, Neutrophils # (Auto) 8.9H, Lymphocytes # (Auto) 2.4, Monocytes # (Auto) 0.8, Eosinophils # (Auto) 0.1, Basophils # (Auto) 0.0, Immature Granulocyte # (Auto) 0.1, Syphilis Serology [Pending] 08/01/22 06:13: Hemoglobin 8.4L, Hematocrit 25L, Hepatitis B Surface Antigen [Pending], Hepatitis C Antibody [Pending], HIV (1&2) Ag and Ab Screen Referral [Pending], Rubella IgG Antibody [Pending], Rubella IgG Ab Interpretation [Pending] 08/01/22 17:50: White Blood Count 9.8, Red Blood Count 2.95L, Hemoglobin 9.1L, Hematocrit 27L, Mean Corpuscular Volume 90, Mean Corpuscular Hemoglobin 31, Mean Corpuscular Hemoglobin Concent 34, Red Cell Distribution Width 13.0, Platelet Count 172, Mean Platelet Volume 10.7 Home Meds Active Docusate Sodium 100 Mg Capsule 100 Mg PO BID PRN Ibu (Ibuprofen) 600 Mg Tablet 600 Mg PO Q6HR PRN Ferosul (Ferrous Sulfate) 325 Mg (65 Mg Iron) Tablet 325 Mg PO DAILY@0700 Reported Gummies (Dgk533/FA/Omega3/Dha/Fish Oil) 1 Each Tab.chew 2 Each PO DAILY Assessment/Pt DC Instructions [facility] up at [facility] in 6 weeks for visit. Discharge Diet: No Restrictions Activity as Tolerated: Yes (avoid strenuous activity x 6 weeks, nothing in vagina for 6 weeks) Discharge Physical Examination Allergies: Coded Allergies: latex (Verified Allergy, Unknown, 08/01/22) General Appearance: No Apparent Distress, WD/WN Respiratory: Lungs Clear, Normal Breath Sounds Cardiovascular: Regular Rate, Rhythm Skin: Warm/Dry Neurologic/Psychiatric: Alert, Normal Mood/Affect Copy Copies To 1: ANGE TABOR MDOCH,DOUG Patino MD Aug 01, 2022 20:19
[2022-08-01 21:02] LABS: HEPATITIS C ANTIBODY C Non-Reactive (Non-Reactive)
== END 2022-08-01 18:30 | disposition home or self-care (01) | DRG 806 ==
LOC: WSo 13:02 → LDRP 13:02 → WSo 22:45 → WS 08-01 08:23
PROVIDERS: ADMIT Family Medicine; ATTEND Family Medicine
PROC: 10E0XZZ Delivery of Products of Conception, External Approach (ICD-10-PCS; principal; 2022-08-01)
PROC: 10907ZC Drainage of Amniotic Fluid, Therapeutic from Products of Conception, Via Natural or Artificial Opening (ICD-10-PCS; 2022-08-01)
DX: O60.14X0 Preterm labor third trimester with preterm delivery third trimester, not applicable or unspecified (principal); D62 Acute posthemorrhagic anemia; Z37.0 Single live birth; Z3A.36 36 weeks gestation of pregnancy; O71.82 Other specified trauma to perineum and vulva; O36.5930 Maternal care for other known or suspected poor fetal growth, third trimester, not applicable or unspecified; O90.81 Anemia of the puerperium
CPT/HCPCS: 36415; 76815; 85014; 85018; 85025; 85027; 85379; 85384; 85610; 85730; 86762; 86780; 86803; 86850; 86900; 86901; 87340; 87389; 90707; 99212